=== PATIENT | male | born 1950 | race Hispanic/Latino ===

== ENCOUNTER → 2019-07-19 | Day surgery (SDC) | payer MEDICARE ==
[2019-07-15 16:46] LABS: BASOPHILS % 0.6 % (0.0-1.0); EOSINOPHILS # (AUTO) 0.3 (0.0-0.4); EOSINOPHILS % 3.8 % (0.0-6.0); HEMATOCRIT 44.5 % (38.2-49.6); HEMOGLOBIN 15.3 g/dL (14.0-18.0); LYMPHOCYTES # (AUTO) 2.6 (1.0-3.2); LYMPHOCYTES % 37.1 % (18.0-39.1); MEAN CORPUSCULAR HEMOGLOBIN 31.5 pg (28-32); MEAN CORPUSCULAR HGB CONC 34.4 g/dL (31-35); MEAN CORPUSCULAR VOLUME 91.6 fL (81-99); MONOCYTES # (AUTO) 0.5 (0.2-0.8); MONOCYTES % 7.1 % (4.4-11.3); NEUTROPHILS # (AUTO) 3.6 (2.1-6.9); NEUTROPHILS % 51.1 % (38.7-80.0); PLATELET COUNT 214 x10e3/uL (140-360); RED BLOOD COUNT 4.86 x10e6/uL (4.3-5.7); RED CELL DISTRIBUTION WIDTH 13.2 % (11.7-14.4)
--- NOTE | 2019-07-15 17:15 | Diagnostic Imaging Report ---
Chest, PA and lateral. History: Preoperative evaluation, phimosis. Comparison: None available. Discussion: The cardiomediastinal silhouette and pulmonary vasculature are within normal limits. The lungs are clear without evidence of consolidation or effusion. There are no acute osseous abnormalities. IMPRESSION: No radiographic evidence of acute cardiopulmonary abnormality. Signed by: Dagoberto Ruff MD on 07/15/2019 5:12 PM
[~2019-07-19] MED LIST: ATORVASTATIN CA10 MG PO; BUPIVACAINE 0.25% 30ML SDV INJ ONE; BUPIVACAINE HCL 0.5% INJ 30 ML VIAL INJ ONE; CEFAZOLIN SOD 1 GM/NS 50ML 50 ML IV ONE; DEXAMETHASONE SOD PHOS INJ 4 MG/ML VIAL ONE; EPHEDRINE SULFATE INJ 50 MG/ML VIAL ONE; LIDOCAINE HCL 2% LOCAL INJ 5 ML SDV VIAL INJ ONE; LISINOPRIL2.5 MG PO; MIDAZOLAM HCL 2 MG/2 ML VIAL ONE; NEOSTIGMINE 1 MG/ML 10ML VIAL ONE; ONDANSETRON HCL INJ 2MG/ML 2ML 2 MG/ML VIAL ONE; PROPOFOL IV EMULSION 10 MG/ML 20 ML VIAL ONE; SEVOFLURANE INHAL SOLN 250 ML PEN BTL ONE
--- OUTSIDE RECORDS SUMMARY | 2019-07-19 09:27 | XMS REPORT ---
Author Organization Unknown Address [address] [place] [id number] Phone [phone] Care Team Providers Care Commercial Loan Reviewer Name Role Phone Jesus Esquivel Unavailable Unavailable Allergies Code Code System Name Reaction Severity Status Onset NKDA Notes: penicillin? Medications Name Status Start Date Stop Date amoxicillin 875 mg-potassium clavulanate 125 mg tablet Completed 06/05/2017 atorvastatin 20 mg tablet Take 1 tablet every day by oral route as directed for 90 days. Active Not available iyuhlpzqdxcxmpk-zmviytvmqrruvvt-FP 2 mg-30 mg-10 mg/5 mL syrup Completed 06/05/2017 clobetasol 0.05 % topical cream Completed 08/24/2016 clotrimazole-betamethasone 1 %-0.05 % topical cream APPLY TO THE AFFECTED AND SURROUNDING AREAS OF SKIN BY TOPICAL ROUTE 2 TIMES PER DAY IN THE MORNING AND EVENING FOR 2 WEEKS Completed 11/30/2016 Cordran 0.05 % lotion Completed 08/24/2016 Depo-Medrol 80 mg/mL suspension for injection Take 80 mg by injection route. Completed 06/05/2017 doxepin 25 mg capsule Completed 08/24/2016 fluticasone 50 mcg/actuation nasal spray,suspension [place] 1 spray twice a day by intranasal route as directed for 30 days. Completed 07/31/2017 hydroxyzine HCl 25 mg tablet Completed 08/24/2016 lisinopril 20 mg tablet Take 1 tablet every day by oral route as directed for 90 days. Active Not available Locoid 0.1 % lotion Completed 08/24/2016 meloxicam 15 mg tablet Active Not available Pazeo 0.7 % eye drops DIRECTED Active Not available prednisolone acetate 1 % eye drops,suspension DIRECTED Active Not available prednisone 50 mg tablet Completed 06/26/2017 ProAir HFA 90 mcg/actuation aerosol inhaler Completed 06/05/2017 Singulair 10 mg tablet Take 1 tablet every day by oral route as directed for 90 days. Completed 07/31/2017 Problems Name Status Onset Date Source Hyperlipidemia Active 11/30/2016 Benign Essential Hypertension Active 11/30/2016 Procedures Date Name Performed by 06/05/2017 XR, Chest, 2 View [facility] [place] [address] [place] [address] (Work [address]) 07/10/2017 XR, Chest, 2 View [facility] [place] [address] [place] [address] (Work Place) 07/31/2017 XR, Finger(s) [facility] [place] [address] [place] [address] (Work Place) Notes: no surgical history- 07/31/17 KG Lab Results Date Name Specimen Result Interpretation Description Value Range Status Address 03/02/2017 CMP, Serum or Plasma Alt 24 U/L 0-55 U/L Final [facility]: [address] Ast 24 U/L 5-34 U/L Final [facility]: [address] [place] [address] Bun 22.6 mg/dL 8.4-25.7 mg/dL Final [facility]: [address] [place] [address] Alk Phos 102 unit/L 40-150 unit/L Final [facility]: [address] [place] Glucose 95 mg/dL 70-99 mg/dL Final [facility]: [address] [place] [address], [place] Albumin 4.2 g/dL 3.5-5.0 g/dL Final [facility]: [address] [place] [address], [place] Creatinine 0.99 mg/dL 0.72-1.25 mg/dL Final [facility]: [address] [place] [address], [place] eGFR Non- >60 mL/min/1.73m2 >60 mL/min/1.73m2 Final [facility]: [address] Total Bilirubin 0.4 mg/dL 0.2-1.2 mg/dL Final [facility]: [address] eGFR - >60 mL/min/1.73m2 >60 mL/min/1.73m2 Final [facility]: [address] Sodium 140 mEq/L 136-145 mEq/L Final [facility]: [address] Potassium 4.5 mEq/L 3.5-5.1 mEq/L Final [facility]: [address] Chloride 106 mmol/L 98-107 mmol/L Final [facility]: [address] Total Protein 7.2 g/dL 6.4-8.3 g/dL Final [facility]: [address] Calcium 9.4 mg/dL 8.8-10.0 mg/dL Final [facility]: [address] Co2 27.3 mmol/L 23.0-31.0 mmol/L Final [facility]: [address] Anion Gap 7 calc Final [facility]: [address] 03/02/2017 Lipid Panel, Serum Hdl 44 mg/dL 40-60 mg/dL Final [facility]: [address] Triglyceride 97 mg/dL 0-149 mg/dL Final [facility]: [address] VLDL Calc. 19 mg/dL Final [facility]: [address] cholesterol/HDL Ratio 3.8 mg/dL Final [facility]: [address] non-HDL Cholesterol Calc. 125 mg/dL 0-160 mg/dL Final [facility]: [address] Cholesterol 169 mg/dL 0-199 mg/dL Final [facility]: [address] LDL Calc. 106 mg/dL 0-130 mg/dL Final [facility]: [address] 03/02/2017 PSA, Serum or Plasma PSA, Total 1.28 NG/mL <4.00 NG/mL Final [facility]: [address] 08/31/2016 CMP, Serum or Plasma Alt 20 U/L 0-55 U/L Final [facility]: [address] [facility] [place] Ast 21 U/L 5-34 U/L Final [facility]: [address] Lawson, [place] Bun 22 mg/dL 8-26 mg/dL Final [facility]: [address] Lawson, [place] Alk Phos 117 unit/L 40-150 unit/L Final [facility]: [address], [place] High Glucose 113 mg/dL 70-99 mg/dL Final [facility]: [address] Lawson, [place] Albumin 4.4 g/dL 3.5-5.0 g/dL Final [facility]: [address], [place] Creatinine 1.15 mg/dL 0.72-1.25 mg/dL Final [facility]: [address] [place] [address] eGFR Non- >60 mL/min/1.73m2 >60 mL/min/1.73m2 Final [facility] Bilirubin 0.2 mg/dL 0.2-1.2 mg/dL Final [facility]: [address] [facility] e[facility] - >60 mL/min/1.73m2 >60 mL/min/1.73m2 Final [facility]: [address] [place] Sodium 141 mEq/L 136-145 mEq/L Final [facility]: [address] [facility] Potassium 4.2 mEq/L 3.5-5.1 mEq/L Final [facility]: [address] Lawson, [place] Chloride 106 mmol/L 98-107 mmol/L Final [facility]: [address] [facility] Total Protein 7.6 g/dL 6.4-8.3 g/dL Final [facility]: [address] [facility] Calcium 9.7 mg/dL 8.8-10.0 mg/dL Final [facility]: [address], [place] Co2 26.2 mmol/L 23.0-31.0 mmol/L Final [facility]: [address] Anion Gap 9 calc Final [facility]: [address] 08/24/2016 Rf (Rheumatoid Factor), Serum Normal Rheumatoid Factor 12 IU/mL <14 IU/mL Final [facility]: [address] 08/24/2016 Ccp (Cyclic Citrullinated Peptide) Igg, Serum Normal Cyclic Citrullinated Peptide (Ccp) Ab (IgG) <16 units Final [facility]: [address] 08/24/2016 JAQUAN (Antinuclear Antibodies) Igg, Ifa, Serum Normal JAQUAN Screen, Ifa negative negative Final [facility]: [address] 08/24/2016 Extra Lavender-top Tube Extra Lavender-top Tube Final [facility]: [address] Comment Final [facility]: [facility] Cassandra brandyn [address] 08/24/2016 CBC W/ Auto Diff Wbc 5.77 x10*3/L 2.90-10.50 x10*3/L Final [facility]: [facility] Cassandra Fwbrandyn [address] Rbc 5.19 10*12/L 3.61-5.21 10*12/L Final [facility]: [address] Hemoglobin 16.40 g/dL 12.30-17.50 g/dL Final [facility]: [address] Hematocrit 48.1 % 37.1-51.3 % Final [facility]: [address] Mcv 92.7 fL 79.4-101.6 fL Final [facility]: [address] Mch 31.6 pg 26.2-34.8 pg Final [facility]: [address] Mchc 34.1 g/dL 30.2-35.6 g/dL Final [facility]: [address] RDW-SD 42.6 fL 35.8-49.8 fL Final [facility]: [address] Platelet Count 224.0 k/uL 118.8-347.0 k/uL Final [facility]: [address] [place] Mpv 11.4 fL 8.4-13.4 fL Final [facility]: [address] [place] Neut% 41.5 % 39.1-76.5 % Final [facility]: [address] [place] Lymph% 44.9 % 13.8-46.8 % Final [facility]: [address] [place] Mon% 9.5 % 4.6-14.4 % Final [facility]: [address] [place] Eos% 3.8 % 0.8-7.3 % Final [facility]: [address] [place] Baso% 0.3 % 0.2-1.5 % Final [facility]: [address] [place] Neut# 2.4 x10*3/L 0.8-7.0 x10*3/L Final [facility]: [address] [place] Lymph# 2.6 x10*3/L 0.6-3.2 x10*3/L Final [facility]: [address] [place] Mon# 0.6 x10*3/L 0.2-1.0 x10*3/L Final [facility]: [address] [place] Eos# 0.22 x10*3/L 0.04-0.51 x10*3/L Final [facility]: [address] [place] Baso# 0.02 x10*3/L 0.01-0.09 x10*3/L Final [facility]: [address] [place] 08/24/2016 CMP, Serum or Plasma Alt 23 U/L 0-55 U/L Final [facility]: [address] [place] [address] Ast 23 U/L 5-34 U/L Final [facility]: [facility] [facility] Bun 17 mg/dL 8-26 mg/dL Final [facility]: [address] [place] [address] Alk Phos 101 unit/L 40-150 unit/L Final [facility]: [address] [facility] High Glucose 101 mg/dL 70-99 mg/dL Final [facility]: [address] [facility] Albumin 4.3 g/dL 3.5-5.0 g/dL Final [facility]: [address] [facility] Creatinine 0.83 mg/dL 0.72-1.25 mg/dL Final [facility]: [address] [facility] eGFR Non- >60 mL/min/1.73m2 >60 mL/min/1.73m2 Final [facility]: [address] [place] [address] Total Bilirubin 0.5 mg/dL 0.2-1.2 mg/dL Final [facility]: [address] [place] [address] eGFR - >60 mL/min/1.73m2 >60 mL/min/1.73m2 Final [facility]: [address] [facility] Sodium 141 mEq/L 137-144 mEq/L Final [facility]: [address] [place] [address] High Potassium 5.2 mEq/L 3.5-5.0 mEq/L Final [facility]: [address] [facility] Chloride 105 mmol/L 101-110 mmol/L Final [facility]: [address] [facility] Total Protein 7.5 g/dL 6.4-8.3 g/dL Final [facility]: [address] [facility] Calcium 9.8 mg/dL 8.4-10.2 mg/dL Final [facility]: [address] Co2 28.1 mmol/L 22.0-31.0 mmol/L Final [facility]: [address] Anion Gap 8 calc Final [facility]: [facility] [facility] 08/24/2016 Lipid Panel, Serum Hdl 42 mg/dL 40-60 mg/dL Final [facility]: [address] Triglyceride 138 mg/dL 0-149 mg/dL Final [facility]: [address] VLDL Calc. 28 mg/dL Final [facility]: [address] cholesterol/HDL Ratio 6 mg/dL Final [facility]: [address] High non-HDL Cholesterol Calc. 216 mg/dL 0-160 mg/dL Final [facility]: [address] High Cholesterol 258 mg/dL 0-199 mg/dL Final [facility]: [address] High LDL Calc. 188 mg/dL 0-130 mg/dL Final [facility]: [address] 08/24/2016 TSH, Serum or Plasma Tsh 1.508 uIU/mL 0.350-4.940 uIU/mL Final [facility]: [address] 08/24/2016 PSA, Serum or Plasma PSA, Total 1.34 NG/mL <4.00 NG/mL Final [facility] Laboratory: [address] [place] [address] 08/24/2016 Uric Acid, Serum or Plasma Uric Acid 5.8 mg/dL 3.5-7.2 mg/dL Final [facility]: [address] Past Encounters 07/31/2017 Atelectasis; Hyperlipidemia; Benign Essential Hypertension; Nodule on Finger Jesusjamey Almodovar MD: [address] [place] [phone], Ph. 06/26/2017 Atelectasis; Allergic Rhinitis Jesus Almodovar MD: [address] [place] [phone], Ph. 06/05/2017 Allergic Rhinitis; Persistent Cough; Joint Pain Jesus Almodovar MD: [address] [place] [phone], Ph. 05/10/2017 Acute Bronchitis Jesus Almodovar MD: [address] [place] [phone], Ph. 03/02/2017 Benign Essential Hypertension; Hyperlipidemia; Joint Pain; Plantar Fasciitis; Screening for Malignant Neoplasm of Colon; Screening for Malignant Neoplasm of Prostate; Body Mass Index 25-29 - Overweight Jesus Almodovar MD: [address] [place] [phone], Ph. 11/30/2016 Benign Essential Hypertension; Hyperlipidemia; Joint Pain; Body Mass Index 25-29 - Overweight; Vaccination for Diphtheria, Pertussis, and Tetanus; Posthitis Jesusjamey Almodovar MD: [address] [place] [phone], Ph. 08/31/2016 Benign Essential Hypertension; Hyperlipidemia; Hyperkalemia; Joint Pain Jesus Almodovar MD: [address] [place] [phone], Ph. 08/24/2016 Adult Health Examination; Headache Disorder; Joint Pain; Screening for Malignant Neoplasm of Colon; Immunization; Benign Essential Hypertension; Balanitis; Screening for Malignant Neoplasm of Prostate Jesus Almodovar MD: [address] [place] [phone], Ph. Social History Smoking Status Never Smoker Vaccine List Vaccine Type Tdap 11/30/20160.5 mL zoster 08/24/20160.65 mL Plan of Care Reminders Provider Appointments None recorded. Lab None recorded. Referral None recorded. Procedures None recorded. Surgeries None recorded. Imaging None recorded. Vitals 07/31/2017 04:15PM Est Patient Height Weight Blood Pressure 5 ft 7 in 130/88 mm[Hg] 06/26/2017 04:00PM Est Patient Height Weight Blood Pressure 5 ft 7 in (1) 148/80 mm[Hg] (2) 160/90 mm[Hg] 06/05/2017 04:00PM Est Patient Height Weight BMI Blood Pressure 5 ft 7 in 176 lbs 27.6 kg/m2 120/78 mm[Hg] 05/10/2017 11:45AM Est Patient Height Weight BMI Blood Pressure 5 ft 7 in 178 lbs 27.9 kg/m2 132/86 mm[Hg] 03/02/2017 04:15PM Est Patient Height Weight BMI Blood Pressure 5 ft 7 in 179 lbs 28 kg/m2 (1) 150/80 mm[Hg] (2) 140/80 mm[Hg] 11/30/2016 04:00PM Est Patient Height Weight BMI Blood Pressure 5 ft 7 in 178 lbs 27.9 kg/m2 124/80 mm[Hg] 08/31/2016 02:45PM Est Patient Height Weight BMI Blood Pressure 5 ft 7 in 182 lbs 28.5 kg/m2 150/82 mm[Hg] 08/24/2016 08:30AM PHOTOCOPY OPERATOR/EST CPX Height Weight BMI Blood Pressure 5 ft 7 in 179 lbs 28 kg/m2 (1) 175/103 mm[Hg] (2) 188/112 mm[Hg]
--- OUTSIDE RECORDS SUMMARY | 2019-07-19 09:27 | XMS REPORT ---
Author Author [facility] Address Unknown Phone Unavailable Care Team Providers Care Legal Receptionist Name Role Phone RAKEL CERVANTES Unavailable Unavailable Problems This patient has no known problems. Allergies, Adverse Reactions, Alerts This patient has no known allergies or adverse reactions. Medications This patient has no known medications. Results Test Description Test Time Test Comments Text Results Atomic Results Result Comments CHEST 2 VIEWS 2019-07-15 17:11:00 [place] [address] Patient Name: SARA BERG MR #: [id number] : 1950 Age/Sex: 68/M Req #: [id number] [facility] Physician: Ordered by: RAKEL CERVANTES MD Report #: [id number] Location: OR Room/Bed: Procedure: [id number] DX/CHEST 2 VIEWS Exam Date: 07/15/19 Exam Time: 1640 REPORT STATUS: Signed Chest, PA and lateral. History: Preoperative evaluation, phimosis. Comparison: None available. Discussion: The cardiomediastinal silhouette and pulmonary vasculature are within normal limits. The lungs are clear without evidence of consolidation or effusion. There are no acute osseous abnormalities. IMPRESSION: No radiographic evidence of acute cardiopulmonary abnormality. Signed by: Dagoberto Angel MD on 07/15/2019 5:12 PM Dictated By: DAGOBERTO ANGEL MD 11 Transcribed By: PURNIMA on 07/15/191711 COPY TO: RAKEL CERVANTES MD
[2019-07-19 13:45] VITALS: BP 147/83
--- NOTE | 2019-08-11 20:22 | Operative Report ---
DATE OF PROCEDURE: 07/19/2019 SURGEON: Will Abraham MD PREOPERATIVE DIAGNOSIS: Phimosis. POSTOPERATIVE DIAGNOSIS: 1. Phimosis. 2. Penile lesion, proximal left dorsal penile shaft. OPERATIONS PERFORMED: 1. Circumcision. 2. Regional nerve block (separate procedure performed for postoperative pain control and not required for the actual performance of surgery, which was done under general anesthesia). 3. Excision of general lesion. ANESTHESIA: General. COMPLICATIONS: None. CLINICAL SUMMARY: Dequan Mascorro is a 68-year-old man with the above preoperative diagnoses. He is brought for circumcision. He is aware of the risks of bleeding, infection, injury to adjacent structures, need for additional procedure, and elected to proceed. OPERATIVE PROCEDURE IN DETAIL: Informed consent was verified. Dequan Mascorro was properly identified, taken to the operating room, and placed on the operating table in supine position. Anesthesia was uneventfully begun. The patient's genitalia were then shaved, prepared, and draped in usual sterile fashion. Following the shave, we identified a 2-3 mm lesion at the proximal left dorsal penile shaft. This lesion was not appreciated earlier when the hair was hiding it. Marcaine without epinephrine was utilized to infiltrate subcutaneously circumferentially at the base of the penis as well as in the region of the dorsal penile nerves. This was done for postoperative pain control and not required for actual performance of the surgery, which was done under general anesthesia. Circumferential incision was then made overlying the alvarez of the glans penis. The foreskin was fully retracted and secondary incision was made approximately 5 mm away from the alvarez of the glans penis along the inner preputial skin. A sleeve surgical circumcision was then performed. The foreskin was removed. Pinpoint electrocautery was utilized to achieve hemostasis. The patient's incision was then approximated with 4-0 chromic suture in running fashion with an excellent cosmetic result. We excised the lesion of the penile base. We fulgurated any bleeding and then we approximated the skin with chromic sutures. Sterile dressing was applied of bacitracin ointment followed by Xeroform gauze, followed by loose-fitting Pollo, and the patient was uneventfully reversed from anesthesia and taken to the recovery room in stable condition. There were no complications to the procedure. He tolerated the procedure well. Explicit postop instructions were given. We will follow the patient up in the office. MD LIZA Dong/EDIL /[id number]
== END | disposition home or self-care (01) ==
LOC: OR 09:24
PROVIDERS: ATTEND Urology
DX: N47.1 Phimosis (principal); N47.7 Other inflammatory diseases of prepuce; L90.5 Scar conditions and fibrosis of skin; I10 Essential (primary) hypertension; E78.5 Hyperlipidemia, unspecified; Z01.810 Encounter for preprocedural cardiovascular examination; Z01.812 Encounter for preprocedural laboratory examination; Z01.818 Encounter for other preprocedural examination
CPT/HCPCS: 11420; 36415; 54161; 71046; 85025; 88304; 88305; 93005; J0690; J1100; J2001; J2250; J2405; J2704; J2710

== ENCOUNTER 2020-09-24 13:31 | Emergency (ER) | payer MEDICARE ==
[~2020-09-24] VITALS: Ht 170.2 cm; Wt 81.6 kg
[~2020-09-24 13:31] MED LIST changes: -BUPIVACAINE 0.25% 30ML SDV INJ ONE; -BUPIVACAINE HCL 0.5% INJ 30 ML VIAL INJ ONE; -CEFAZOLIN SOD 1 GM/NS 50ML 50 ML IV ONE; -DEXAMETHASONE SOD PHOS INJ 4 MG/ML VIAL ONE; -EPHEDRINE SULFATE INJ 50 MG/ML VIAL ONE; -LIDOCAINE HCL 2% LOCAL INJ 5 ML SDV VIAL INJ ONE; -MIDAZOLAM HCL 2 MG/2 ML VIAL ONE; -NEOSTIGMINE 1 MG/ML 10ML VIAL ONE; -ONDANSETRON HCL INJ 2MG/ML 2ML 2 MG/ML VIAL ONE; -PROPOFOL IV EMULSION 10 MG/ML 20 ML VIAL ONE; -SEVOFLURANE INHAL SOLN 250 ML PEN BTL ONE
[2020-09-24 15:08] VITALS: BP 145/83
== END 2020-09-24 15:09 | disposition home or self-care (01) ==
LOC: ER 13:50
DX: S71.111A Laceration without foreign body, right thigh, initial encounter (principal); W29.8XXA Contact with other powered hand tools and household machinery, initial encounter; I10 Essential (primary) hypertension; E78.5 Hyperlipidemia, unspecified
CPT/HCPCS: 99282

== ENCOUNTER 2020-10-04 12:18 | Emergency (ER) | payer MEDICARE ==
[~2020-10-04] VITALS: Ht 170.2 cm; Wt 81.6 kg
== END 2020-10-04 13:07 | disposition home or self-care (01) ==
LOC: ER 12:52
DX: Z48.02 Encounter for removal of sutures (principal); I10 Essential (primary) hypertension; E78.5 Hyperlipidemia, unspecified
CPT/HCPCS: 99282

== ENCOUNTER 2021-06-27 14:29 | Emergency (ER) | payer MEDICARE ==
[~2021-06-27] VITALS: Ht 170.2 cm; Wt 81.6 kg
[2021-06-27 15:31] VITALS: BP 154/77
== END 2021-06-27 15:45 | disposition home or self-care (01) ==
LOC: ER 14:50
DX: Z46.6 Encounter for fitting and adjustment of urinary device (principal); I10 Essential (primary) hypertension; E78.5 Hyperlipidemia, unspecified
CPT/HCPCS: 99282

== ENCOUNTER 2022-01-06 13:53 | Inpatient (IN) | payer MEDICARE ==
[~2022-01-06] VITALS: Ht 170.2 cm; Wt 81.6 kg
[2022-01-06] MEDS ORDERED: SODIUM CHLORIDE 0.9% 1000ML 1,000 ML IV STA (14:56)
[2022-01-06] MEDS ORDERED: FAMOTIDINE 20 MG TAB PO NR (15:00)
[2022-01-06] MEDS ORDERED: ONDANSETRON HCL INJ 2MG/ML 2ML 2 MG/ML VIAL IV NR (15:00)
[2022-01-06 15:51] LABS: BASOPHILS % 0.3 % (0.0-1.0); EOSINOPHILS # (AUTO) 0.1 (0.0-0.4); EOSINOPHILS % 0.9 % (0.0-6.0); HEMATOCRIT 52.7 % (38.2-49.6); HEMOGLOBIN 17.7 g/dL (14.0-18.0); LYMPHOCYTES # (AUTO) 1.4 (1.0-3.2); LYMPHOCYTES % 13.6 % (18.0-39.1); MEAN CORPUSCULAR HEMOGLOBIN 32.2 pg (28-32); MEAN CORPUSCULAR HGB CONC 33.6 g/dL (31-35); MEAN CORPUSCULAR VOLUME 95.8 fL (81-99); MONOCYTES # (AUTO) 0.7 (0.2-0.8); MONOCYTES % 7.1 % (4.4-11.3); NEUTROPHILS # (AUTO) 7.9 (2.1-6.9); NEUTROPHILS % 77.8 % (38.7-80.0); PLATELET COUNT 210 x10e3/uL (140-360); RED CELL DISTRIBUTION WIDTH 13.3 % (11.7-14.4)
[2022-01-06 16:00] LABS: CLARITY,URINE CLEAR (CLEAR); COLOR,URINE YELLOW (YELLOW); KETONES,URINE NEGATIVE (NEGATIVE); LEUKOCYTE ESTERASE ,URINE NEGATIVE (NEGATIVE); NITRITE,URINE NEGATIVE (NEGATIVE); PROTEIN,URINE DIPSTICK TRACE (NEGATIVE); URINE UROBILINOGEN 0.2 mg/dL (0.2 - 1)
[2022-01-06 16:04] LABS: BACTERIA,URINE MODERATE /HPF; EPITHELIAL CELLS,URINE FEW /LPF; MUCUS,URINE MODERATE (RARE); WBC,URINE (MAN) 0-5 /HPF (0-5)
[2022-01-06 16:08] LABS: ALANINE AMINOTRANSFERASE 24 IU/L (0-55); ALBUMIN 4.8 g/dL (3.5-5.0); ALBUMIN/GLOBULIN RATIO 1.4 (0.8-2.0); ALKALINE PHOSPHATASE 95 IU/L (40-150); ANION GAP 15.7 mmol/L (8-16); BLOOD UREA NITROGEN 18 mg/dL (7-26); BUN/CREATININE RATIO 22 (6-25); CALCIUM 9.5 mg/dL (8.4-10.2); CARBON DIOXIDE 22 mmol/L (22-29); CHLORIDE 105 mmol/L (98-107); CREATINE KINASE 328 IU/L (30-200); CREATININE, SERUM 0.83 mg/dL (0.72-1.25); GLUCOSE 126 mg/dL (74-118); LIPASE 21 U/L (8-78); POTASSIUM 4.7 mmol/L (3.5-5.1); SODIUM 138 mmol/L (136-145)
[2022-01-06] MEDS ORDERED: IOPAMIDOL 370 MG/ML 100 ML INFUS..BTL INJ ONE (16:30)
[2022-01-06] MEDS ORDERED: ONDANSETRON HCL INJ 2MG/ML 2ML 2 MG/ML VIAL IV PRN (18:30)
[2022-01-06] MEDS ORDERED: Morphine 4mg INJECTION 4 MG/ML INJ IV PRN (18:30)
[2022-01-06] MEDS: SODIUM CHLORIDE 0.9% 1000ML 1,000 ML IV SCH (19:22)
[2022-01-06 21:10] VITALS: BP 132/72
[2022-01-06 22:47] VITALS: BP 139/71
[2022-01-06] MEDS ORDERED: SULFASALAZINE500 MG PO (22:47)
[2022-01-06] MEDS ORDERED: ROSUVASTATIN CA20 MG PO (22:47)
[2022-01-06] MEDS ORDERED: AMLODIPINE-BEN1 EAC5 PO (22:47)
[2022-01-06] MEDS ORDERED: MELOXICAM15 MG PO (22:47)
[2022-01-06] MEDS ORDERED: TADALAFIL5 MG PO (22:47)
[2022-01-06 22:50] VITALS: BP 139/71
[2022-01-07] VITALS (7 sets, daily range): BP systolic 116–145; BP diastolic 66–78
[2022-01-07] MEDS: SODIUM CHLORIDE 0.9% 1000ML 1,000 ML IV SCH ×3 (02:48→18:09)
[2022-01-07 04:55] LABS: BASOPHILS % 0.4 % (0.0-1.0); EOSINOPHILS # (AUTO) 0.6 (0.0-0.4); EOSINOPHILS % 7.2 % (0.0-6.0); HEMOGLOBIN 14.7 g/dL (14.0-18.0); LYMPHOCYTES # (AUTO) 1.9 (1.0-3.2); LYMPHOCYTES % 23.6 % (18.0-39.1); MEAN CORPUSCULAR HEMOGLOBIN 32.2 pg (28-32); MEAN CORPUSCULAR HGB CONC 34.2 g/dL (31-35); MEAN CORPUSCULAR VOLUME 94.3 fL (81-99); MONOCYTES # (AUTO) 0.7 (0.2-0.8); MONOCYTES % 9.2 % (4.4-11.3); NEUTROPHILS # (AUTO) 4.7 (2.1-6.9); NEUTROPHILS % 59.5 % (38.7-80.0); PLATELET COUNT 179 x10e3/uL (140-360); RED BLOOD COUNT 4.56 x10e6/uL (4.3-5.7); RED CELL DISTRIBUTION WIDTH 13.9 % (11.7-14.4)
[2022-01-07 05:19] LABS: ANION GAP 13.4 mmol/L (8-16); CALCIUM 8.5 mg/dL (8.4-10.2); CREATININE, SERUM 0.73 mg/dL (0.72-1.25); POTASSIUM 4.4 mmol/L (3.5-5.1)
[2022-01-07] MEDS ORDERED: METOPROLOL TARTRATE INJ 1 MG/ML VIAL IV PRN (10:45)
[2022-01-07] MEDS ORDERED: FAMOTIDINE 20 MG/2 ML VIAL IV SCH (17:00)
[2022-01-07] MEDS: FAMOTIDINE 20 MG/2 ML VIAL IV SCH (21:16)
[2022-01-08] VITALS: BP 140/76
[2022-01-08 04:00] VITALS: BP 133/74
[2022-01-08] MEDS: SODIUM CHLORIDE 0.9% 1000ML 1,000 ML IV SCH ×2 (06:19→10:30)
[2022-01-08 08:48] VITALS: BP 146/74
[2022-01-08] MEDS: FAMOTIDINE 20 MG/2 ML VIAL IV SCH (09:00)
[2022-01-08 09:23] LABS: BASOPHILS % 0.4 % (0.0-1.0); EOSINOPHILS # (AUTO) 0.4 (0.0-0.4); EOSINOPHILS % 7.6 % (0.0-6.0); HEMATOCRIT 43.8 % (38.2-49.6); HEMOGLOBIN 14.9 g/dL (14.0-18.0); LYMPHOCYTES # (AUTO) 1.3 (1.0-3.2); LYMPHOCYTES % 22.3 % (18.0-39.1); MEAN CORPUSCULAR HEMOGLOBIN 32.2 pg (28-32); MEAN CORPUSCULAR VOLUME 94.6 fL (81-99); MONOCYTES # (AUTO) 0.3 (0.2-0.8); MONOCYTES % 5.5 % (4.4-11.3); NEUTROPHILS # (AUTO) 3.6 (2.1-6.9); NEUTROPHILS % 63.8 % (38.7-80.0); PLATELET COUNT 176 x10e3/uL (140-360); RED BLOOD COUNT 4.63 x10e6/uL (4.3-5.7); RED CELL DISTRIBUTION WIDTH 13.6 % (11.7-14.4)
[2022-01-08 09:42] LABS: ANION GAP 13.4 mmol/L (8-16); CALCIUM 9.1 mg/dL (8.4-10.2); CREATININE, SERUM 0.78 mg/dL (0.72-1.25); PHOSPHORUS 2.8 MG/DL (2.3-4.7); POTASSIUM 4.4 mmol/L (3.5-5.1)
[2022-01-08 11:12] VITALS: BP 146/74
[2022-01-08 12:01] VITALS: BP 147/76
[2022-01-08 15:25] VITALS: BP 124/88
[2022-01-08] MEDS ORDERED: ONDANSETRON ODT4 MG PO (18:10)
[2022-01-08] MEDS ORDERED: SENNA LAX8.6 MG PO (18:10)
[2022-01-08] MEDS ORDERED: CEPHALEXIN500 MG PO (18:13)
== END 2022-01-08 18:39 | disposition home or self-care (01) | DRG 389 ==
LOC: ER 14:26 → ERHOLD 18:23 → MED/SURG 21:10
PROVIDERS: ADMIT Internal Medicine; ATTEND Internal Medicine
DX: K56.600 Partial intestinal obstruction, unspecified as to cause (principal); E87.2 Acidosis; N39.0 Urinary tract infection, site not specified; I10 Essential (primary) hypertension; E78.5 Hyperlipidemia, unspecified; M06.9 Rheumatoid arthritis, unspecified; Z20.822 Contact with and (suspected) exposure to COVID-19
CPT/HCPCS: 0223U; 36415; 71045; 74018; 74177; 80048; 80053; 81001; 82550; 82553; 83690; 83735; 84100; 84484; 85025; 87086; 93005; 94799; 96361; 99284; J2270; J2405; J2543; J7030; Q9967

== ENCOUNTER → 2024-04-03 | Outpatient (REF) | payer MEDICARE ==
[~2024-04-03] MED LIST changes: +AMLODIPINE-BEN1 EAC5 PO; +CEPHALEXIN500 MG PO; +IOPAMIDOL 370 MG/ML 100 ML INFUS..BTL INJ ONE; +MELOXICAM15 MG PO; +ONDANSETRON ODT4 MG PO; +ROSUVASTATIN CA20 MG PO; +SENNA LAX8.6 MG PO; +SULFASALAZINE500 MG PO; +TADALAFIL5 MG PO
[2024-04-03 09:36] LABS: CREATININE, SERUM 0.75 mg/dL (0.72-1.25)
== END ==
LOC: NM 08:29
PROVIDERS: ATTEND Urology
DX: C61 Malignant neoplasm of prostate (principal)
CPT/HCPCS: 36415; 71046; 74177; 78306; 82565; 84520; A9503; Q9967